=== PATIENT | male | born 1955 | race Caucasian/White ===

== ENCOUNTER 2018-09-08 06:34 | Emergency (ER) | payer BC ==
[2018-09-08] MEDS ORDERED: NS 0.9% 500 ML* 500 ML IV ONE (06:47)
--- NOTE | 2018-09-08 06:58 | ED ---
Syncope/Near Syncope - HPI Summary HPI Summary: This patient is a 62 year old M presenting to ED with a chief complaint of loss of consciousness since this morning at 0200. The patient rates the pain 0/10 in severity. Symptoms possibly aggravated by new medication. Symptoms alleviated by spontaneous resolution. Patient is normally on hydrochlorothiazide/losartan for BP. He has seen Dr. Noble regarding urinary frequency and was recently prescribed a new medication, Alfuzosin, for enlarged prostate. Patient took his first dose last night at 1930, two hours after dinner. He urinated this morning at 0200 and felt slightly lightheaded. Patient reports he felt a micturition syncope coming and then proceeded to lose consciousness that was unwitnessed, falling down and hitting his upper back on the wall. He did not hit the floor and did not have any head injury. This morning, patient went to urinate again after waking up and felt the similar sensation and then proceeded to lose consciousness again. Per , patient was found up against the wall, diaphoretic, pallor, and unable to answer for 30 seconds. Patient took a Nyquil last night but has not taken hydrochlorothiazide/losartan today. Patient reports a small cut on lip. 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 - Onset/Duration: Sudden Onset, Resolved Timing: Frequency Of Episodes - 2 episodes lasting ~30 seconds Context: Unwitnessed, Loss Of Consciousness Activity At Onset: Exertion Associated Head Trauma: No Aggravating Factor(s): Nothing Alleviating Factor(s): Spontaneous Resolution Associated Signs And Symptoms: Diaphoresis, Lightheadedness, Other - Pallor - Allergies/Home Medications Allergies/Adverse Reactions: Allergies Allergy/AdvReac Type Severity Reaction Status Date / Time No Known Allergies Allergy Verified 03/08/16 10:27 PMH/Surg Hx/FS Hx/Imm Hx Cardiovascular History: Denies: Hx Pacemaker/ICD Sensory History: Denies: Hx Hearing Aid Psychiatric History: Denies: Hx Panic Disorder - Surgical History Surgery Procedure, Year, and Place: vasectomy. VOCAL POLYPS REMOVED - Immunization History Date of Tetanus Vaccine: utd Date of Influenza Vaccine: fall 2017 Infectious Disease History: No Infectious Disease History: Denies: Traveled Outside the [place] in Last 30 Days - Family History Known Family History: Positive: Other Family History: Negative for colon cancer - Social History Alcohol Use: Rare Hx Substance Use: No Substance Use Type: Reports: None Hx Tobacco Use: No Smoking Status (MU): Never Smoked Tobacco Review of Systems Constitutional: Other - Pallor Positive: Skin Diaphoresis Positive: frequency Musculoskeletal: Negative - Head injury, Other - Hit upper back Skin: Other - Cut on lip Neurological: Other - Lightheaded Positive: Syncope All Other Systems Reviewed And Are Negative: Yes Physical Exam - Summary Physical Exam Summary: VITAL SIGNS: Reviewed. GENERAL: Patient is a well-developed and nourished male who is lying comfortable in the stretcher. Patient is not in any acute respiratory distress. HEAD AND FACE: No signs of trauma. No ecchymosis, hematomas or skull depressions. No sinus tenderness. EYES: PERRLA, EOMI x 2, No injected conjunctiva, no nystagmus. EARS: Hearing grossly intact. Ear canals and tympanic membranes are within normal limits. MOUTH: Oropharynx within normal limits. NECK: Supple, trachea is midline, no adenopathy, no JVD, no carotid bruit, no c- spine tenderness, neck with full ROM CHEST: Symmetric, no tenderness at palpation LUNGS: Clear to auscultation bilaterally. No wheezing or crackles. CVS: Regular rate and rhythm, S1 and S2 present, no murmurs or gallops appreciated. ABDOMEN: Soft, non-tender. No signs of distention. No rebound no guarding, and no masses palpated. Bowel sounds are normal. EXTREMITIES: FROM in all major joints, no edema, no cyanosis or clubbing. NEURO: Alert and oriented x 3. No acute neurological deficits. Speech is normal and follows commands. SKIN: Dry and warm Triage Information Reviewed: Yes Vital Signs On Initial Exam: Initial Vitals Temp Pulse Resp BP Pulse Ox 96.2 F 65 16 136/92 97 09/08/18 06:37 09/08/18 06:37 09/08/18 06:37 09/08/18 06:37 09/08/18 06:37 Vital Signs Reviewed: Yes Diagnostics - Vital Signs Vital Signs Temp Pulse Resp BP Pulse Ox 09/08/18 06:37 96.2 F 65 16 136/92 97 - Laboratory Lab Statement: Any lab studies that have been ordered have been reviewed, and results considered in the medical decision making process. - EKG 0646 Cardiac Rate: NL - 59 BPM EKG Rhythm: Sinus Rhythm Summary of EKG Findings: Sinus rhythm at 59 BPM. Incomplete RBBB. Course/Dx Course Of Treatment: This patient is a 62 year old M presenting to ED with a chief complaint of loss of consciousness since this morning at 0200. During ED course, EKG revealed sinus rhythm at 59 BPM and incomplete RBBB. Patient will be signed out to Dr. Noe Navarrete upon shift changing with dx of syncope pending further course and treatment. - Diagnoses Provider Diagnoses: Syncope Discharge - Sign-Out/Discharge Documenting (check all that apply): Sign-Out Patient - Pending further course and treatment Signing out patient TO: Noe Navarrete Patient Received Moderate/Deep Sedation with Procedure: No - Discharge Plan Condition: Stable Referrals: Paulina Keys MD [Primary Care Provider] - - Attestation Statements Document Initiated by Scribe: Yes Documenting Scribe: Norbert Velazquez Provider For Whom Scribe is Documenting (Include Credential): Pato Wallace MD Scribe Attestation: I, Norbert Velazquez, scribed for Pato Wallace MD on 09/08/18 at 0658. Status of Scribe Document: Ready
[2018-09-08 07:01] LABS: ABS Eosinophils 0.4 10^3/ul (0-0.6); ABS Lymphocytes 1.1 10^3/ul (1.0-4.8); ABS Monocytes 0.4 10^3/ul (0-0.8); ABS Neutrophils 5.2 10^3/ul (1.5-7.7); Eosinophil % 5.9 %; Hematocrit 44 % (42-52); Hemoglobin 14.9 g/dL (14.0-18.0); Mean Corpuscular HGB Conc 34 g/dL (31-36); Mean Corpuscular Hemoglobin 33 pg (27-31); Mean Corpuscular Volume 96 fL (80-94); Mean Platelet Volume 7.7 fL (7.4-10.4); Nucleated Red Blood Cells % 0.1; Platelet Count 164 10^3/uL (150-450); Red Blood Count 4.56 10^6 /uL (4.18-5.48); Red Cell Distribution Width 13 % (10.5-15); White Blood Count 7.1 10^3/uL (3.5-10.8)
[2018-09-08 07:09] LABS: Activated Partial Thrombo Time 28.1 seconds (26.0-36.3); INR 1.01 (0.82-1.09)
--- NOTE | 2018-09-08 07:16 | ED ---
Progress - Progress Note Progress Note: Receiving sign out from Dr. Wallace at shift change, pending labs and further evaluation. Pt's condition has been stable. He will be discharged with a final dx of syncope. Re-Evaluation - Re-Evaluation First Eval Re-Evaluation Time: 07:45 Change: Improved Comment: Pt feels a little better. Discussed lab results, particularly lower magnesium. Second Eval Re-Evaluation Time: 08:27 Change: Improved Comment: Pt feels much better and is able to urinate without any issues. Course/Dx - Course Course Of Treatment: Pt is a 62 y/o male who presents to the ED s/p syncope. Pt improved during the course and is able to urinate without difficulty. He is discharged with a final dx of syncope. I discussed results with patient, and he reports feeling better. He is hemodynamically stable and safe for discharge. Strict return precautions given and he will otherwise follow up with his PCP. - Diagnoses Provider Diagnoses: Syncope Discharge - Sign-Out/Discharge Documenting (check all that apply): Patient Departure - Discharge, Receiving Sign-Out Receiving patient FROM: Pato Wallace Patient Received Moderate/Deep Sedation with Procedure: No - Discharge Plan Condition: Good Disposition: HOME Patient Education Materials: Syncope (ED) Referrals: Paulina Keys MD [Primary Care Provider] - (1-3 days) Additional Instructions: RETURN TO THE EMERGENCY DEPARTMENT FOR CHANGING OR WORSENING SYMPTOMS. - Billing Disposition and Condition Condition: GOOD Disposition: Home - Attestation Statements Document Initiated by Scribe: Yes Documenting Scribe: Terri Alvarez Provider For Whom Scribe is Documenting (Include Credential): Noe Navarrete MD Scribe Attestation: Terri Goldstein, scribed for Noe Navarrete MD on 09/09/18 at 0719. Scribe Documentation Reviewed: Yes Provider Attestation: The documentation as recorded by the Terri jansen accurately reflects the service I personally performed and the decisions made by me, Noe Navarrete MD Status of Scribe Document: Viewed
[2018-09-08 07:19] LABS: Albumin 3.8 g/dL (3.2-5.2); Albumin/Globulin Ratio 1.6 (1-3); BUN/Creatinine Ratio 33.7 (8-20); Calcium 8.9 mg/dL (8.6-10.3); EGFR African American 108.7 (>60); EGFR Non-African American 89.8 (>60); Globulin 2.4 g/dL (2-4); Magnesium 1.7 mg/dL (1.9-2.7); Potassium 3.8 mmol/L (3.5-5.0); Total Bilirubin 0.6 mg/dL (0.2-1.0); Total Protein 6.2 g/dL (6.4-8.9)
[2018-09-08 08:34] VITALS: BP 125/79
[2018-09-08 09:06] LABS: TSH (Thyroid Stimulating Horm) 5.17 mcIU/mL (0.34-5.60)
== END 2018-09-08 08:33 | disposition home or self-care (01) ==
LOC: ED 06:34
DX: R55 Syncope and collapse (principal); I10 Essential (primary) hypertension; N40.0 Benign prostatic hyperplasia without lower urinary tract symptoms; R94.31 Abnormal electrocardiogram [ECG] [EKG]
CPT/HCPCS: 36415; 80053; 83735; 84443; 84484; 85025; 85610; 85730; 93005; 96360; 99284

== ENCOUNTER 2023-09-17 16:49 | Observation (INO) ==
[2023-09-17 18:01] LABS: ABS Lymphocytes 0.7 10^3/uL (1.0-4.8); ABS Monocytes 0.3 10^3/uL (0.0-1.1); ABS Neutrophils 3.5 10^3/uL (1.5-7.6); Eosinophil % 0.8 %; Hematocrit 43.3 % (38-53); Hemoglobin 14.8 g/dL (13.2-16.3); Lymphocyte % 16.2 %; Mean Corpuscular Hemoglobin 32.8 pg (27-33); Mean Corpuscular Hgb Conc 34.2 g/dL (31-36); Mean Platelet Volume 8.3 fL (7.5-11.2); Platelet Count 165 10^3/uL (150-450); Red Blood Count 4.51 10^6/uL (4.06-5.63); Red Cell Distribution Width 13.4 % (12-17); White Blood Count 4.6 10^3/uL (3.6-10.2)
[2023-09-17] MEDS: Ondansetron 4 mg VIAL 2 MG/ML 2 ml VIAL IV ONE (18:17)
[2023-09-17 18:54] LABS: TSH Ultra Thyroid Stim Horm 3.88 mcIU/mL (0.34-5.60)
[2023-09-17 18:57] LABS: Albumin 4.5 g/dL (3.2-5.2); Albumin/Globulin Ratio 2.5 (1-3); Calcium 9.7 mg/dL (8.6-10.3); Creatinine, Serum 1.1 mg/dL (0.67-1.17); Globulin 1.8 g/dL (2-4); Magnesium 1.8 mg/dL (1.9-2.7); Potassium 4.3 mmol/L (3.5-5.0); Total Bilirubin 0.8 mg/dL (0.2-1.0); Total Protein 6.3 g/dL (6.4-8.9); eGFR CKD-EPI 73.1 (>60)
[2023-09-17 19:33] LABS: High Sensitivity Troponin 1 Hr 7 pg/mL (<20)
[2023-09-18 00:53] LABS: Urine Appearance Clear; Urine Bilirubin Negative (Negative); Urine Blood Negative (Negative); Urine Color Yellow; Urine Glucose Negative (Negative); Urine Ketones 1+ (Negative); Urine Nitrite Negative (Negative); Urine Protein Trace (Negative); Urine Specific Gravity >1.050 (1.002-1.030); Urine Urobilinogen Negative (Negative); Urine pH 5.5 (5.0-8.0)
[2023-09-18 10:16] VITALS: BP 130/77
[2023-09-18] MEDS: Ondansetron 4 mg VIAL 2 MG/ML 2 ml VIAL IV PRN (12:53)
== END 2023-09-18 14:43 | disposition home or self-care (01) ==
LOC: ED 16:49 → EDHOLD 16:49 → SUATTDRO 20:29 → EDHOLD 21:32 → MEDTELE 22:22
PROVIDERS: ADMIT Internal Medicine; ATTEND Student in an Organized Health Care Education/Training Program